=== PATIENT | male | born 2000 | race Caucasian/White ===

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

== ENCOUNTER 2022-06-07 18:35 | Emergency (ER) | payer OTHER ==
[~2022-06-07] VITALS: Ht 182.9 cm; Wt 104.3 kg
== END 2022-06-07 18:47 | disposition home or self-care (01) ==
LOC: ER 18:35
DX: L73.9 Follicular disorder, unspecified (principal)
CPT/HCPCS: 99282

== ENCOUNTER 2022-06-18 02:34 | Emergency (ER) | payer OTHER ==
[~2022-06-18] VITALS: Ht 175.3 cm; Wt 83.9 kg
[2022-06-18] MEDS ORDERED: DOXY100 PO (02:49)
== END 2022-06-18 03:05 | disposition home or self-care (01) ==
LOC: ER 02:34
DX: L02.02 Furuncle of face (principal); Z79.899 Other long term (current) drug therapy
CPT/HCPCS: 99282

== ENCOUNTER 2022-08-11 11:11 | Emergency (ER) | payer OTHER ==
[~2022-08-11] VITALS: Ht 182.9 cm; Wt 108.9 kg
[~2022-08-11 11:11] MED LIST changes: +DOXY100 PO
[2022-08-11 11:55] LABS: BASOPHILS ABSOLUTE AUTO 0.02 K/mm3 (0.00-0.23); BASOPHILS PERCENT AUTO 0 % (0-2); EOSINOPHILS ABSOLUTE AUTO 0.17 K/mm3 (0.00-0.68); EOSINOPHILS PERCENT AUTO 3 % (0-6); Hematocrit 43.5 % (37.0-53.0); Hemoglobin 14.8 g/dL (13.5-17.5); IMMATURE GRAN ABSOLUTE AUTO 0.01 K/mm3 (0.00-0.10); IMMATURE GRAN PERCENT AUTO 0 % (0-1); LYMPHOCYTES ABSOLUTE AUTO 1.73 K/mm3 (0.84-5.20); LYMPHOCYTES PERCENT AUTO 31 % (21-46); MONOCYTES ABSOLUTE AUTO 0.44 K/mm3 (0.16-1.47); MONOCYTES PERCENT AUTO 8 % (4-13); Mean Corpuscular HGB 29.8 pg (26.0-34.0); Mean Corpuscular Volume 88 fL (80-100); Mean Platelet Volume 10.2 fL (9.1-12.4); NEUTROPHILS ABSOLUTE AUTO 3.29 K/mm3 (1.96-9.15); NEUTROPHILS PERCENT AUTO 58 % (41-73); Platelet Count 274 K/mm3 (150-400); RDW Coefficient Variation 11.9 % (11.7-14.2); RDW Standard Deviation 38.4 fL (35.1-46.3); Red Blood Cell Count 4.96 M/mm3 (4.30-5.90); White Blood Cell Count 5.66 K/mm3 (4.00-11.30)
[2022-08-11 12:56] LABS: Albumin/Globulin Ratio 1.1 (0.8-1.8); Bilirubin, Total 0.3 mg/dL (0.1-1.0); Bun/Creatinine Ratio 18.3 (12.0-20.0); Calcium, Blood 9.6 mg/dL (8.5-10.1); Creatinine, Blood 1.09 mg/dL (0.60-1.20); Globulin, Blood 3.8 g/dL (2.2-4.0); Potassium, Blood 3.8 mmol/L (3.5-5.5); Total Protein, Blood 7.8 g/dL (6.4-8.2)
== END 2022-08-11 12:36 | disposition left against medical advice (07) ==
LOC: ER 11:11
PROVIDERS: Physician Assistant
DX: R10.9 Unspecified abdominal pain (principal); Z53.21 Procedure and treatment not carried out due to patient leaving prior to being seen by health care provider
CPT/HCPCS: 36415; 80053; 83690; 85025; 99282

== ENCOUNTER 2022-12-14 20:18 | Emergency (ER) | payer OTHER ==
[~2022-12-14] VITALS: Ht 182.9 cm; Wt 104.3 kg
[2022-12-14 20:32] VITALS: BP 132/86
== END 2022-12-14 21:44 | disposition home or self-care (01) ==
LOC: ER 20:18
DX: S60.011A Contusion of right thumb without damage to nail, initial encounter (principal); W23.0XXA Caught, crushed, jammed, or pinched between moving objects, initial encounter
CPT/HCPCS: 73130; 99283-25

== ENCOUNTER 2023-01-06 07:52 | Emergency (ER) | payer OTHER ==
[~2023-01-06] VITALS: Ht 182.9 cm; Wt 44.5 kg
[2023-01-06 08:06] VITALS: BP 128/74
[2023-01-06] MEDS ORDERED: ONDA4ODT MM (08:34)
[2023-01-06] MEDS ORDERED: COLCHICINE0.6 MG PO (08:34)
== END 2023-01-06 08:42 | disposition home or self-care (01) ==
LOC: ER 07:52
DX: M10.9 Gout, unspecified (principal)
CPT/HCPCS: 96372; 99283-25; A9270; J1885

== ENCOUNTER 2023-03-22 07:59 | Emergency (ER) | payer OTHER ==
[~2023-03-22] VITALS: Ht 185.4 cm; Wt 136.1 kg
[~2023-03-22 07:59] MED LIST changes: +COLCHICINE0.6 MG PO; +ONDA4ODT MM
[2023-03-22 09:01] VITALS: BP 125/94
[2023-03-22] MEDS ORDERED: PRED5 PO (09:14)
[2023-03-22] MEDS ORDERED: Deltasone 10 mg10 MG PO (09:14)
[2023-03-22] MEDS ORDERED: PRED20 PO (09:14)
== END 2023-03-22 09:23 | disposition home or self-care (01) ==
LOC: ER 07:59
DX: M10.9 Gout, unspecified (principal)
CPT/HCPCS: 99283; J7512

== ENCOUNTER → 2023-07-08 | Outpatient (CLI) | payer OTHER ==
[~2023-07-08] MED LIST changes: +Deltasone 10 mg10 MG PO; +PRED20 PO; +PRED5 PO
[2023-07-08 10:36] LABS: Bilirubin, Total 0.5 mg/dL (0.1-1.0); Bun/Creatinine Ratio 9.8 (12.0-20.0); Calcium, Blood 9.5 mg/dL (8.5-10.1); Creatinine, Blood 1.22 mg/dL (0.60-1.20); Globulin, Blood 4.1 g/dL (2.2-4.0); Potassium, Blood 3.8 mmol/L (3.5-5.5); Total Protein, Blood 8.1 g/dL (6.4-8.2)
[2023-07-08 10:41] LABS: BASOPHILS ABSOLUTE AUTO 0.03 K/mm3 (0.00-0.23); BASOPHILS PERCENT AUTO 1 % (0-2); EOSINOPHILS ABSOLUTE AUTO 0.06 K/mm3 (0.00-0.68); EOSINOPHILS PERCENT AUTO 1 % (0-6); Hematocrit 45.6 % (37.0-53.0); Hemoglobin 15.4 g/dL (13.5-17.5); IMMATURE GRAN ABSOLUTE AUTO 0.03 K/mm3 (0.00-0.10); IMMATURE GRAN PERCENT AUTO 1 % (0-1); LYMPHOCYTES PERCENT AUTO 8 % (21-46); MONOCYTES ABSOLUTE AUTO 0.59 K/mm3 (0.16-1.47); MONOCYTES PERCENT AUTO 11 % (4-13); Mean Corpuscular HGB 30.3 pg (26.0-34.0); Mean Corpuscular HGB Conc 33.8 g/dL (31.5-36.5); Mean Corpuscular Volume 90 fL (80-100); Mean Platelet Volume 10.6 fL (9.1-12.4); NEUTROPHILS PERCENT AUTO 79 % (41-73); Platelet Count 228 K/mm3 (150-400); RDW Coefficient Variation 12.1 % (11.7-14.2); RDW Standard Deviation 40.1 fL (35.1-46.3); Red Blood Cell Count 5.09 M/mm3 (4.30-5.90); White Blood Cell Count 5.21 K/mm3 (4.00-11.30)
== END ==
LOC: LAB 10:19 → LAB SHORT 10:19
PROVIDERS: Emergency Medicine
DX: R11.2 Nausea with vomiting, unspecified (principal)
CPT/HCPCS: 80053; 83690; 85025

== ENCOUNTER 2023-09-15 10:34 | Emergency (ER) | payer OTHER ==
[~2023-09-15] VITALS: Ht 182.9 cm; Wt 115.7 kg
[2023-09-15 10:43] VITALS: BP 142/91
[2023-09-15] MEDS ORDERED: Ketorolac Tromethamine 30mg Vial IM ONE (11:30)
[2023-09-15] MEDS ORDERED: Voltaren100 GM TOP (11:58)
== END 2023-09-15 12:09 | disposition home or self-care (01) ==
LOC: ER 10:34
DX: M76.812 Anterior tibial syndrome, left leg (principal); M10.9 Gout, unspecified
CPT/HCPCS: 96372; 99283-25; J1885

== ENCOUNTER 2024-03-30 10:22 | Emergency (ER) | payer OTHER ==
[~2024-03-30] VITALS: Ht 182.9 cm; Wt 127.0 kg
[~2024-03-30 10:22] MED LIST changes: +SULTRIDS PO; +Voltaren100 GM TOP
[2024-03-30 10:43] VITALS: BP 140/83
[2024-03-30] MEDS ORDERED: CIPHYDOTSU RIGHTEAR (12:16)
== END 2024-03-30 12:31 | disposition home or self-care (01) ==
LOC: ER 10:22
DX: H60.501 Unspecified acute noninfective otitis externa, right ear (principal)
CPT/HCPCS: 99282

== ENCOUNTER 2024-04-26 22:35 | Emergency (ER) | payer OTHER ==
[~2024-04-26] VITALS: Ht 182.9 cm; Wt 136.1 kg
[~2024-04-26 22:35] MED LIST changes: +CIPHYDOTSU RIGHTEAR
[2024-04-26 22:40] VITALS: BP 144/108
[2024-04-27] MEDS ORDERED: Acetaminophen 500 MG Tab PO ONE (01:05)
[2024-04-27] MEDS ORDERED: Ibuprofen 600 MG Tab PO ONE (01:05)
[2024-04-27] MEDS ORDERED: ACET500 PO (01:23)
[2024-04-27] MEDS ORDERED: IBUP600 PO (01:23)
== END 2024-04-27 01:36 | disposition home or self-care (01) ==
LOC: ER 22:35
DX: M25.561 Pain in right knee (principal); V89.2XXA Person injured in unspecified motor-vehicle accident, traffic, initial encounter
CPT/HCPCS: 73562-RT; 99284-25; A9270